=== PATIENT | female | born 1980 | race African-American/Black ===

== ENCOUNTER 2018-05-05 16:06 | Inpatient (IN) | payer MEDICAID ==
[~2018-05-05] VITALS: Ht 165.1 cm; Wt 94.8 kg
[2018-05-05] MEDS ORDERED: FERR-71 MT (17:26)
[2018-05-05] MEDS ORDERED: PNV1TABL50 MT (17:26)
[2018-05-05] MEDS ORDERED: LACTATED RINGERS 1,000 ML IV SCH (18:22)
[2018-05-05] MEDS ORDERED: DEXT 5%/LR + PITOCIN 20UNITS/L 1,000 ML IV SCH ×2 (18:22→20:34)
[2018-05-05] MEDS ORDERED: CARBOPROST TROMETHAMINE 250 MCG/ML AMPUL IM PRN (18:30)
[2018-05-05] MEDS ORDERED: MISOPROSTOL 100MCG TABLET VG SCH (18:30)
[2018-05-05] MEDS ORDERED: LIDOCAINE HCL 1% 20ML VIAL (Pyxis) INJ INFIL SCH (18:30)
[2018-05-05] MEDS ORDERED: BUTORPHANOL TARTRATE 2 MG/ML VIAL IV PRN (18:30)
[2018-05-05] MEDS ORDERED: NALOXONE HCL 0.4 MG/ML 1ML VIAL IM PRN (18:30)
[2018-05-05] MEDS ORDERED: METHYLERGONOVINE MALEATE 0.2 MG/ML IM PRN (18:30)
[2018-05-05 19:10] LABS: BASOPHILS % 0.4 % (0.0-2.0); EOSINOPHILS % 0.3 % (0.0-5.0); HEMATOCRIT. 35.5 % (36.0-48.0); HEMOGLOBIN. 11.8 g/dL (12.0-16.0); LYMPHOCYTES % 21.3 % (20.0-50.0); MEAN CORPUSCULAR HEMOGLOBIN 31.9 pg (28.0-32.0); MEAN CORPUSCULAR VOLUME 96.1 fL (81.0-99.0); MEAN PLATELET VOLUME 11.9 fl (7.4-10.4); MONOCYTES % 5.3 % (2.0-8.0); NEUTROPHILS % 72.7 % (40.0-76.0); PLATELET 176 x1000/uL (130-400); RED CELL DISTRIBUTION WIDTH 13.9 % (11.6-14.6)
[2018-05-05 19:11] LABS: CLARITY URINE CLEAR (CLEAR); COLOR URINE YELLOW (YELLOW); KETONES URINE NEGATIVE (NEGATIVE); LEUKOCYTE ESTERASE URINE TRACE (NEGATIVE); NITRITE URINE NEGATIVE (NEGATIVE); OCCULT BLOOD URINE NEGATIVE (NEGATIVE); PROTEIN URINE NEGATIVE (NEGATIVE); SPECIFIC GRAVITY URINE 1.006 (1.005-1.030); UROBILINOGEN URINE 0.2 E.U./dL (0.2-1.0)
[2018-05-05 19:19] LABS: PARTIAL THROMBOPLASTIN TIME 30.9 sec (23.4-31.0); PROTHROMBIN TIME 9.6 sec (9.1-11.1)
[2018-05-05 19:29] LABS: *AMPHETAMINES SCREEN URINE NEGATIVE (NEGATIVE); *BARBITURATES SCREEN URINE NEGATIVE (NEGATIVE); *BENZODIAZEPINES SCREEN URINE NEGATIVE (NEGATIVE); *COCAINE SCREEN URINE NEGATIVE (NEGATIVE)
[2018-05-05 19:30] LABS: CANNABINOID URINE SCREEN NEGATIVE (NEGATIVE); METHADONE URINE SCREEN NEGATIVE (NEGATIVE); OPIATES URINE SCREEN NEGATIVE (NEGATIVE); PHENCYCLIDINE URINE SCREEN NEGATIVE (NEGATIVE)
[2018-05-05 19:47] LABS: HEPATITIS B SURFACE ANTIGEN NEGATIVE
[2018-05-05] MEDS ORDERED: ACETAMINOPHEN WITH CODEINE 300/30MG TABLET PO PRN (20:45)
[2018-05-05] MEDS ORDERED: IBUPROFEN 800MG TABLET PO PRN (20:45)
[2018-05-05] MEDS ORDERED: IBUPROFEN 400MG TABLET PO PRN (20:45)
[2018-05-05] MEDS ORDERED: BISACODYL 10MG SUPP PR PRN (20:45)
[2018-05-05] MEDS ORDERED: BENZOCAINE/LANOLIN/ALOE VERA SPRAY TOP PRN (20:45)
[2018-05-05] MEDS ORDERED: GLYCERIN/WITCH HAZEL LEAF MEDICATED PAD TOP PRN (20:45)
[2018-05-05] MEDS ORDERED: LANOLIN OINT 0.25 GM TUBE TOP PRN (20:45)
[2018-05-05] MEDS ORDERED: TETANUS, DIPHTHERIA, PERTUSSIS VAC/PF 0.5ML (>7YR OLD) IM ONE (20:45)
[2018-05-05] MEDS ORDERED: DIPHENHYDRAMINE 25MG CAPSULE PO PRN (20:45)
[2018-05-05] MEDS ORDERED: INFLUENZA VIRUS VACCINE(AFLURIA) 0.5ML SYR IM ONE (20:45)
[2018-05-05] MEDS ORDERED: HEMORRHOIDAL SUPP PR PRN (20:45)
[2018-05-05] MEDS ORDERED: DOCUSATE SODIUM 100MG CAPSULE PO SCH (21:00)
[2018-05-05 22:25] VITALS: BP 122/71
[2018-05-05 23:00] VITALS: BP 122/78
[2018-05-06] VITALS: BP 120/70
[2018-05-06 04:00] VITALS: BP 105/57
[2018-05-06] MEDS: FERROUS SULFATE 325MG TABLET PO SCH ×3 (08:36→17:27)
[2018-05-06] MEDS: SIMETHICONE 80MG TABLET CHEW PO SCH ×4 (08:36→22:10)
[2018-05-06] MEDS: PRENATAL VIT/FE FUMARATE/FA TABLET PO SCH (08:36)
[2018-05-06 09:51] VITALS: BP 99/53
[2018-05-06 10:37] LABS: BASOPHILS % 0.2 % (0.0-2.0); EOSINOPHILS % 0.1 % (0.0-5.0); HEMATOCRIT. 26.8 % (36.0-48.0); LYMPHOCYTES % 10.6 % (20.0-50.0); MEAN CORPUSCULAR HEMOGLOBIN 32.6 pg (28.0-32.0); MEAN CORPUSCULAR VOLUME 96.8 fL (81.0-99.0); MEAN PLATELET VOLUME 11.2 fl (7.4-10.4); MONOCYTES % 6.1 % (2.0-8.0); PLATELET 159 x1000/uL (130-400); RED BLOOD CELL COUNT 2.77 mill/uL (4.2-5.4); RED CELL DISTRIBUTION WIDTH 13.5 % (11.6-14.6)
[2018-05-06 16:30] VITALS: BP 103/43
[2018-05-06 20:00] VITALS: BP 122/59
[2018-05-07 04:00] VITALS: BP 99/52
[2018-05-07 07:47] VITALS: BP 106/62
[2018-05-07] MEDS: SIMETHICONE 80MG TABLET CHEW PO SCH (08:54)
[2018-05-07] MEDS: PRENATAL VIT/FE FUMARATE/FA TABLET PO SCH (08:54)
[2018-05-07] MEDS: FERROUS SULFATE 325MG TABLET PO SCH (08:54)
== END 2018-05-07 12:00 | disposition home or self-care (01) | DRG 560 ==
LOC: 8 EST LDRP 16:06 → OBSVTOIN 16:06 → 8EST 22:11
PROVIDERS: ADMIT Obstetrics & Gynecology; ATTEND Obstetrics & Gynecology
PROC: 10E0XZZ Delivery of Products of Conception, External Approach (ICD-10-PCS; principal; 2018-05-05)
PROC: 0HQ9XZZ Repair Perineum Skin, External Approach (ICD-10-PCS; 2018-05-05)
DX: O69.81X0 Labor and delivery complicated by cord around neck, without compression, not applicable or unspecified (principal); O99.344 Other mental disorders complicating childbirth; D64.9 Anemia, unspecified; F32.9 Major depressive disorder, single episode, unspecified; O90.81 Anemia of the puerperium; O70.0 First degree perineal laceration during delivery; Z37.0 Single live birth; Z3A.39 39 weeks gestation of pregnancy
CPT/HCPCS: 36415; 80305; 86592; 86703; 86762; 86850; 86900; 87340; 99281; G0378; J2590; J3490